=== PATIENT | female | born 1970 | race American Indian/Alaskan Native ===

== ENCOUNTER 2019-09-07 20:44 | Emergency (ER) | payer OTHER ==
[~2019-09-07] VITALS: Ht 154.9 cm; Wt 89.4 kg
[~2019-09-07 20:44] MED LIST: ASPIRIN EC81 MG PO; LABETALOL HCL200 MG PO; TRANDATE100 MG PO; TRANDATE200 MG PO; VITAFOL-OB+DHA1 EACH PO
== END 2019-09-07 21:55 | disposition home or self-care (01) ==
LOC: ED 20:44
DX: M25.552 Pain in left hip (principal)